=== PATIENT | male | born 1955 | race Caucasian/White ===

== ENCOUNTER 2017-10-14 17:21 | Emergency (ER) | payer OTHER ==
[~2017-10-14 17:21] MED LIST: AMOX500T PO; CLAR500 PO; GABA300C3 PO; LISI-360 PO; METF500 PO; METR-1 PO; PROT40TA PO
[2017-10-14 17:34] VITALS: BP 194/100; PULSE 96; RESP 20; TEMP 97.4; O2SAT 100
[2017-10-14 18:12] LABS: BASOPHIL # 0.1 TH/MM3 (0-0.2); BASOPHIL % 0.5 % (0.0-2.0); EOSINOPHIL # 0.3 TH/MM3 (0-0.4); EOSINOPHIL % 2.2 % (0.0-4.0); HEMATOCRIT 39.9 % (39.0-51.0); HEMOGLOBIN 13.8 GM/DL (13.0-17.0); LYMPH % 14.2 % (9.0-44.0); LYMPHOCYTE # 1.8 TH/MM3 (1.0-4.8); MEAN CORPUSCULAR HEMOGLOBIN 30.7 PG (27.0-34.0); MEAN CORPUSCULAR HGB CONC 34.5 % (32.0-36.0); MEAN PLATELET VOLUME 8.1 FL (7.0-11.0); MONO % 5.4 % (0.0-8.0); MONOCYTE # 0.7 TH/MM3 (0-0.9); NEUT % 77.7 % (16.0-70.0); PLATELET COUNT 344 TH/MM3 (150-450); RED BLOOD COUNT 4.48 MIL/MM3 (4.50-5.90); RED CELL DISTRIBUTION WIDTH 12.8 % (11.6-17.2); WHITE BLOOD COUNT 12.8 TH/MM3 (4.0-11.0)
[2017-10-14 18:18] LABS: PROTHROMBIN TIME - PATIENT 10.6 SEC (9.8-11.6)
[2017-10-14 18:24] LABS: BICARBONATE 28.4 MEQ/L (21.0-32.0); BLOOD UREA NITROGEN 11 MG/DL (7-18); CALCIUM 9.6 MG/DL (8.5-10.1); CHLORIDE 98 MEQ/L (98-107); CREATININE 1.13 MG/DL (0.60-1.30); GLOMERULAR FILTRATION RATE 66 ML/MIN (>89); GLUCOSE,RANDOM 196 MG/DL (74-106); SODIUM (NA) 134 MEQ/L (136-145)
[2017-10-14 18:29] LABS: TROPONIN I LESS THAN 0.02 NG/ML (0.02-0.05)
[2017-10-14 19:23] VITALS: PULSE 81; RESP 18; O2SAT 99
[2017-10-14 19:24] VITALS: O2SAT 100
[2017-10-14] MEDS ORDERED: METF500T PO (19:25)
[2017-10-14] MEDS ORDERED: ONDANSETRON HCL 4 MG/2 ML VIAL ONE (19:26)
[2017-10-14] MEDS ORDERED: METF1000 PO (19:27)
[2017-10-14] MEDS ORDERED: SODIUM CHLOR 0.9% 1000 ML INJ 1,000 ML IV ONE (19:30)
--- NOTE | 2017-10-14 19:37 | PD ---
HPI Chief Complaint: GI Complaint Time Seen by Provider: 19:13 Travel History International Travel<30 days: No Contact w/Intl Traveler<30days: No Traveled to known affect area: No History of Present Illness HPI 62-year-old male presents to the emergency department for evaluation abdominal pain and vomiting. Patient states that he has been having abdominal pain and vomiting for approximately 4 days. He states the abdominal pain has resolved as of yesterday, but he continues to vomit. He has been unable to keep any food or fluids down. Patient states that he did have epigastric abdominal pain. He denies any pain right now. Patient reports continuous vomiting. He vomited during my exam. Patient states that he is diabetic, on metformin. He also reports history of hypertension hyperlipidemia, but is not on any other medications. Patient denies any fevers or chills. No headache. He denies any chest pain or shortness of breath. He complains of chronic left shoulder pain since an injury 10 years ago. He states it hurts intermittently. It is not painful at this time. He also reports left rib pain that occurs when he vomits. Patient denies any previous abdominal surgeries. He does have history of a perforated gastric ulcer. No exacerbating or alleviating factors. Moderate severity. PFSH Past Medical History Cardiovascular Problems: No High Cholesterol: Yes Diabetes: Yes Patient Takes Glucophage: Yes (metformin) Diminished Hearing: No Endocrine: No Genitourinary: Yes Hypertension: Yes Immune Disorder: No Musculoskeletal: No Neurologic: No Respiratory: No Tetanus Vaccination: Unknown Influenza Vaccination: No Social History Alcohol Use: Yes ([employer] DAILY) Tobacco Use: No Substance Use: Yes (WEED OCC) Allergies-Medications (Allergen,Severity, Reaction): Coded Allergies: No Known Allergies (Unverified , 12/05/14) Reported Meds & Prescriptions Reported Meds & Active Scripts Active Reported Metformin (Metformin HCl) 1,000 Mg Tab 1,000 Mg PO BIDPC Review of Systems Except as stated in HPI: all other systems reviewed are Neg Physical Exam Narrative GENERAL: Well-nourished, well-developed male patient, afebrile. SKIN: Focused skin assessment warm/dry. Patient has tenderness over left lateral ribs HEAD: Normocephalic. Atraumatic EYES: No scleral icterus. No injection or drainage. NECK: Supple, trachea midline. No JVD or lymphadenopathy. CARDIOVASCULAR: Regular rate and rhythm without murmurs, gallops, or rubs. RESPIRATORY: Breath sounds equal bilaterally. No accessory muscle use. Lung sounds are clear to auscultation GASTROINTESTINAL: Abdomen soft, non-tender, nondistended. MUSCULOSKELETAL: No cyanosis, or edema. BACK: Nontender without obvious deformity. No CVA tenderness. Data Data Last Documented VS Vital Signs Date Time Temp Pulse Resp B/P (MAP) Pulse Ox O2 Delivery O2 Flow Rate FiO2 10/14/17 19:24 100 Room Air 10/14/17 19:23 81 18 10/14/17 17:34 97.4 Orders Orders Electrocardiogram (10/14/17 17:36) Complete Blood Count With Diff (10/14/17 17:36) Basic Metabolic Panel (Bmp) (10/14/17 17:36) Ckmb (Isoenzyme) Profile (10/14/17 17:36) Troponin I (10/14/17 17:36) Iv Access Insert/Monitor (10/14/17 17:36) Ecg Monitoring (10/14/17 17:36) Oxygen Administration (10/14/17 17:36) Oximetry (10/14/17 17:36) Act Partial Throm Time (Ptt) (10/14/17 17:36) Prothrombin Time / Inr (Pt) (10/14/17 17:36) Lipase (10/14/17 17:36) Ondansetron Inj (Zofran Inj) (10/14/17 19:26) Sodium Chlor 0.9% 1000 Ml Inj (Ns 1000 M (10/14/17 19:30) Ondansetron Inj (Zofran Inj) (10/14/17 19:30) Ct Abd/Pel W Iv Contrast(Rout) (10/14/17 ) Chest, Single Ap (10/14/17 ) Shoulder, Complete (>2vws) (10/14/17 ) Urinalysis - C+S If Indicated (10/14/17 19:29) Hepatic Functional Panel (10/14/17 19:37) Iohexol 350 Inj (Omnipaque 350 Inj) (10/14/17 20:03) Labs Laboratory Tests Test 10/14/17 17:52 10/14/17 20:45 White Blood Count 12.8 TH/MM3 Red Blood Count 4.48 MIL/MM3 Hemoglobin 13.8 GM/DL Hematocrit 39.9 % Mean Corpuscular Volume 89.0 FL Mean Corpuscular Hemoglobin 30.7 PG Mean Corpuscular Hemoglobin Concent 34.5 % Red Cell Distribution Width 12.8 % Platelet Count 344 TH/MM3 Mean Platelet Volume 8.1 FL Neutrophils (%) (Auto) 77.7 % Lymphocytes (%) (Auto) 14.2 % Monocytes (%) (Auto) 5.4 % Eosinophils (%) (Auto) 2.2 % Basophils (%) (Auto) 0.5 % Neutrophils # (Auto) 10.0 TH/MM3 Lymphocytes # (Auto) 1.8 TH/MM3 Monocytes # (Auto) 0.7 TH/MM3 Eosinophils # (Auto) 0.3 TH/MM3 Basophils # (Auto) 0.1 TH/MM3 CBC Comment DIFF FINAL Differential Comment Prothrombin Time 10.6 SEC Prothromb Time International Ratio 1.0 RATIO Activated Partial Thromboplast Time 24.7 SEC Blood Urea Nitrogen 11 MG/DL Creatinine 1.13 MG/DL Random Glucose 196 MG/DL Calcium Level 9.6 MG/DL Sodium Level 134 MEQ/L Potassium Level 4.4 MEQ/L Chloride Level 98 MEQ/L Carbon Dioxide Level 28.4 MEQ/L Anion Gap 8 MEQ/L Estimat Glomerular Filtration Rate 66 ML/MIN Total Bilirubin 0.7 MG/DL Direct Bilirubin 0.2 MG/DL Indirect Bilirubin 0.5 MG/DL Aspartate Amino Transf (AST/SGOT) 11 U/L Alanine Aminotransferase (ALT/SGPT) 24 U/L Alkaline Phosphatase 90 U/L Total Creatine Kinase 47 U/L Troponin I LESS THAN 0.02 NG/ML Total Protein 8.7 GM/DL Albumin 3.8 GM/DL Lipase 86 U/L Urine Color YELLOW Urine Turbidity CLEAR Urine pH 8.0 Urine Specific [place] GREATER THAN 1.050 Urine Protein 30 mg/dL Urine Glucose (UA) 300 mg/dL Urine Ketones 80 mg/dL Urine Occult Blood NEG Urine Nitrite NEG Urine Bilirubin NEG Urine Urobilinogen 2.0 MG/DL Urine Leukocyte Esterase NEG Urine RBC 1 /hpf Urine WBC 3 /hpf Urine Mucus FEW /lpf Microscopic Urinalysis Comment CULT NOT INDICATED MDM Medical Decision Making Medical Screen Exam Complete: Yes Emergency Medical Condition: Yes Medical Record Reviewed: Yes Interpretation(s) Last Impressions Shoulder X-Ray 10/14/17 0000 Signed Impressions: Service Date/Time: Saturday, October 14, 2017 19:39 - CONCLUSION: No acute disease. Miguelangel Lozada MD Chest X-Ray 10/14/17 0000 Signed Impressions: Service Date/Time: Saturday, October 14, 2017 19:36 - CONCLUSION: No acute disease. Miguelangel Lozada MD Differential Diagnosis Electrolyte abnormality versus gastroenteritis versus colitis versus diverticulitis versus pancreatitis Narrative Course 62-year-old male presents to the emergency department for evaluation abdominal pain and vomiting. He also complains of left shoulder pain and left rib pain when he vomits. EKG shows sinus rhythm, heart rate 77, right bundle branch block. This is similar to previous EKG. CBC, CMP, CK, troponin, Lipase, coags, UA are ordered and pending. Chest x-ray and x-ray left shoulder ordered and pending. CT abdomen/pelvis with IV contrast is ordered and pending. Patient is given normal saline 1 L IV bolus, Zofran 4 mg IV per CBC shows leukocytosis 12.8. CMP shows no acute abnormal. CK is 47. Troponin is less than 0.02. Lipase is 86. Coags are unremarkable. UA is negative for acute infection. Chest x-ray shows no acute disease. X-ray left shoulder shows no acute disease. CT abdomen/pelvis shows very prominent thickening of the gastric antrum with some aneurysm of the anterior abdominal wall, neoplasm could have this appearance, direct inspection of the antrum is recommended, hepatic steatosis, posterior left bladder diverticulum. I discussed the case with my attending physician, Dr. Penn, states the patient can follow-up outpatient if he is feeling better. Upon reexamination, the patient states that he is feeling much better and feels comfortable going home. He is instructed to follow with a migration specialist for endoscopy. He will be discharged with a prescription for Zofran. He is instructed to return here for any acute worsening of symptoms. He verbalizes agreement. The patient was discharged in stable condition with instructions, including return instructions and follow up instructions. Diagnosis Primary Impression: Nausea & vomiting Qualified Codes: R11.2 - Nausea with vomiting, unspecified Additional Impression: Abdominal pain in male Referrals: Gabriella Mitchell MD call for appointment Patient Instructions: Abdominal Pain (ED), General Instructions Departure Forms: Tests/Procedures, Work Release Enter return to work date: Oct 17, 2017 Additional Instructions: Follow-up with migration specialist for endoscopy due to abnormal appearance of the stomach. Dr. Mitchell is our migration specialist business administration instructor today. Her information is attached Take Zofran as directed as needed for nausea/vomiting. Follow-up with a primary care physician. Return to the emergency department for any acute worsening of symptoms. Med/Other Pt SpecificInfo: Prescription(s) given Scripts Ondansetron Odt (Ondansetron Odt) 4 Mg Tab 4 MG SL Q6HR Y for Nausea/Vomiting, #16 TAB 0 Refills Prov: Krista Aguilar 10/14/17 Disposition: 01 DISCHARGE HOME Condition: Stable Krista Aguilar Oct 14, 2017 19:37
[2017-10-14] MEDS: ONDANSETRON HCL 4 MG/2 ML VIAL IV PUSH ONE ×2 (19:46→19:47)
[2017-10-14 20:00] LABS: ALBUMIN 3.8 GM/DL (3.4-5.0); DIRECT BILIRUBIN ADULT 0.2 MG/DL (0.0-0.2)
[2017-10-14 20:02] LABS: INDIRECT BILIRUBIN 0.5 MG/DL (0.0-0.8); TOTAL BILIRUBIN ADULT 0.7 MG/DL (0.2-1.0); TOTAL PROTEIN 8.7 GM/DL (6.4-8.2)
[2017-10-14] MEDS ORDERED: IOHEXOL 350 MG/ML 10 ML VIAL (for RAD DIAG) IVCONTRAST ONE (20:03)
--- NOTE | 2017-10-14 20:37 | RADRPT ---
EXAM DATE/TIME: 10/14/2017 19:39 [facility] COMPARISON: No previous studies available for comparison. INDICATIONS : Left shoulder pain after injury 10 years ago. MEDICAL HISTORY : None. SURGICAL HISTORY : None. ENCOUNTER: Initial ACUITY: >1 year PAIN SCORE: 10/10 LOCATION: Left shoulder. FINDINGS: Multiple view examination of the left shoulder demonstrates no evidence of fracture or dislocation. The glenohumeral and acromioclavicular joints are maintained. There is normal range of motion betwee n internal and external rotation. Bony mineralization is normal. CONCLUSION: No acute disease. Miguelangel Lozada MD on October 14, 2017 at 20:35 Board Certified Radiologist. This report was verified electronically.
--- NOTE | 2017-10-14 20:37 | RADRPT ---
EXAM DATE/TIME: 10/14/2017 19:36 [facility] COMPARISON: CHEST SINGLE AP, December 06, 2014, 6:59. INDICATIONS : Chest pain after vomting. MEDICAL HISTORY : None. SURGICAL HISTORY : None. ENCOUNTER: Initial ACUITY: 2 days PAIN SCORE: 2/10 LOCATION: middle chest. FINDINGS: A single view of the chest demonstrates the lungs to be symmetrically aerated without evidence of mas s, infiltrate or effusion. The cardiomediastinal contours are unremarkable. Osseous structures are intact. CONCLUSION: No acute disease. Miguelangel Lozada MD on October 14, 2017 at 20:35 Board Certified Radiologist. This report was verified electronically.
--- NOTE | 2017-10-14 20:51 | RADRPT ---
EXAM DATE/TIME: 10/14/2017 19:55 [facility] COMPARISON: CHEST SINGLE AP, December 06, 2014, 6:59. CHEST SINGLE AP, October 14, 2017, 19:36. CT ABDOMEN & PELVIS W CONTRAST, December 05, 2014, 22:57. INDICATIONS : Abdominal pain with vomiting. IV CONTRAST: 100 cc Omnipaque 350 (iohexol) IV ORAL CONTRAST: No oral contrast ingested. RADIATION DOSE: 6.71 CTDIvol (mGy) MEDICAL HISTORY : Hypertension. Diabetes mellitus type 2. SURGICAL HISTORY : None. ENCOUNTER: Initial ACUITY: 2 days PAIN SCALE: 7/10 LOCATION: abdomen TECHNIQUE: Volumetric scanning of the abdomen and pelvis was performed. Using automated exposure control and ad justment of the mA and/or kV according to patient size, radiation dose was kept as low as reasonably achievable to obtain optimal diagnostic quality images. DICOM format image data is available electro nically for review and comparison. FINDINGS: LOWER LUNGS: The visualized lower lungs are clear. LIVER: There is diffuse decreased attenuation to the liver. No focal hepatic lesions are seen. There is incr eased density in what appears to be a contracted gallbladder likely related to calcium within the gal lbladder versus vicarious excretion of contrast if the patient has had a recent injection of intraven ous contrast. SPLEEN: Normal size without lesion. PANCREAS: Within normal limits. KIDNEYS: Normal in size and shape. There is no mass, stone or hydronephrosis. ADRENAL GLANDS: Within normal limits. VASCULAR: There is no aortic aneurysm. BOWEL/MESENTERY: There is very prominent thickening of the distal aspect the stomach. There appears to be some ulcerat ion within the anterior gastric wall. ABDOMINAL WALL: There is a minimal umbilical hernia containing mesenteric fat. RETROPERITONEUM: There is no lymphadenopathy. BLADDER: No wall thickening or mass. There is a 3.7 cm posterior left bladder diverticulum. REPRODUCTIVE: Calcifications are seen in the prostate. INGUINAL: There is no lymphadenopathy or hernia. MUSCULOSKELETAL: Within normal limits for patient age. CONCLUSION: 1. Very prominent thickening of the gastric antrum with some aneurysm at the anterior abdominal wall. A neoplasm could have this appearance. Direct inspection of the antrum is recommended. 2. Hepatic steatosis. 3. Posterior left bladder diverticulum. Miguelangel Lozada MD on October 14, 2017 at 20:42 Board Certified Radiologist. This report was verified electronically.
[2017-10-14 21:01] LABS: BILIRUBIN, URINE NEG (NEG); BLOOD, URINE NEG (NEG); GLUCOSE,URINE 300 mg/dL (NEG); KETONE, URINE 80 mg/dL (NEG); MUCUS URINE FEW /lpf (OCC); NITRITE,URINE NEG (NEG); URINE COLOR YELLOW (YELLW/STRAW); URINE LEUKOCYTE ESTERASE NEG (NEG)
[2017-10-14] MEDS ORDERED: ONDA4TAB7 SL (21:17)
--- NOTE | 2017-10-15 18:48 | EKG ---
Date Performed: 10/14/2017 Time Performed: 17:46:54 PTAGE: 62 years EKG: Sinus rhythm MARKED LEFT AXIS DEVIATION RIGHT BUNDLE BRANCH BLOCK Left anterior fascicular block Since the previo us tracing, no significant change noted ABNORMAL ECG PREVIOUS TRACING : 12/05/2014 17.57 DOCTOR: Juan Ramon Olvera Interpretating Date/Time 10/15/2017 18:46:47
== END 2017-10-14 21:48 | disposition home or self-care (01) ==
LOC: NEPC 17:21
DX: R11.2 Nausea with vomiting, unspecified (principal); R10.13 Epigastric pain; M25.512 Pain in left shoulder; Z79.84 Long term (current) use of oral hypoglycemic drugs
CPT/HCPCS: 71045; 73030; 74177; 80048; 80076; 81001; 82550; 83690; 84484; 85025; 85610; 85730; 93005; 96374; 99285; J2405; J7030; Q9967